=== PATIENT | male | born 1960 | race Caucasian/White ===

== ENCOUNTER 2016-07-04 09:02 | Observation (INO) | payer OTHER ==
[2016-06-30 15:37] LABS: HEMATOCRIT 40.1 % (40.0-51.0); HEMOGLOBIN 13.9 g/dL (13.6-17.8)
[2016-06-30 16:21] LABS: BUN (BLOOD UREA NITROGEN) 9 MG/DL (6-23); CALCIUM, SERUM 8.9 MG/DL (8.5-10.4); CHLORIDE, SERUM 106 MMOL/L (96-112); CO2 (CARBON DIOXIDE) 26 MMOL/L (24-34); GFR AFRICAN AMERICAN 115 ML/MIN (>=60); GFR NON AFRICAN AMERICAN 99 ML/MIN (>=60); GLUCOSE, SERUM 81 MG/DL (60-99); SODIUM, SERUM 140 MMOL/L (135-148)
--- NOTE | ~2016-07-04 | OP ---
Record Of Operation [facility] [address] [place]. 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 OPERATIVE PROCEDURES PERFORMED: 1. Left supraomohyoid neck dissection. 2. Left partial glossectomy. 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 Left tongue lesion was biopsied and revealed invasive squamous cell carcinoma. He was felt to benefit from surgical excision of this lesion. Given its depth of invasion of greater than 2.5 mm, he was felt to benefit from neck dissection as well as that would double with both diagnostic and therapeutic in modality. OPERATIVE PROCEDURE AND FINDINGS: After informed consent was obtained, the patient was brought to the operating room, and placed on the operating table in the supine position, at which point general endotracheal anesthesia was induced by the Anesthesia Service through a nasotracheal route. The left neck was prepped and draped in standard sterile fashion and a skin incision was made from the base of the mastoid along the left side, along the left anterior border of the sternocleidomastoid muscle and into the lower third of the neck. Subplatysmal flap was then elevated from posteriorly to anteriorly, and then the fiber lymphatic packet was grasped anterior and lateral to the sternocleidomastoid muscle. This fiber lymphatic packet was then dissected anterior to the muscle and to the floor of the neck under the muscle. The spinal accessory nerve was identified and preserved through the course of dissection. The level 2B was dissected from the posterior aspect of the specimen and then was passed under the spinal accessory nerve and up to the posterior border of the internal jugular vein. Cervical rootlets were treated in a similar fashion and preserve. The fiber lymphatic packet was then dissected up and over the carotid artery and internal jugular vein structure and then into mid anterior portion of the neck. His left submandibular gland was left in place. Specimen was removed from the left neck and was sent as left neck contents. This was from the omohyoid muscle superiorly and just deep to the sternocleidomastoid muscle anteriorly. Attention was then turned towards closure of the wound. Wound was closed in multiple layers consisting of deep Vicryl suture followed by closure of the skin with plain gut suture. Ointment was liberally applied following application of a 10 flat MAGDI drain brought out through a separate stab incision in the posterior neck. Attention was then turned toward the oral cavity where penetrating towel clip was used to deutsch the midline of the tongue and draw the tongue anteriorly into the operative field. An ulcerative thick lesion was noted in the left lateral tongue, the surgical margins which were approximately 1 cm in situ margins were then marked with a Dixie tip dissector and harmonic Scalpel was then used to dissect the left lateral aspect Record Of Operation [facility] [id number] [place]. [address] NAME: JENN PATEL : 58 STATUS : DIS Dilcia PAT#: [id number] AGE: 56 ADM/REG DATE : 07/04/16 MR#: [id number] REPORT SERV DATE: 07/10/16 DICTATED BY: MIQUEL CARPENTER. DATE: 07/05/16 REPORT STATUS : Draft TRANSCRIBED BY: MONSERRAT DATE: 07/05/16 of the tongue. The specimen was then oriented with a short stitch anterior and the long stitch with superior medial. At this point, hemostasis had been achieved with Harmonic scalpel and attention was turned toward closure of the wound. The wound was closed with a serial Vicryl sutures in the linear fashion. The patient tolerated this well. He was turned back toward anesthesia, aroused from anesthesia, and taken to the Postanesthesia Care Unit in satisfactory condition. COMPLICATIONS: None. ESTIMATED BLOOD LOSS: Less than 20 mL. IV FLUIDS: Per anesthesia. DLTanya/MONSERRAT Miquel Carpenter M.D. / [id number] CC: Marilee Johnson M.D.
[~2016-07-04 09:02] MED LIST: COREG12 PO; GOODY'S EX-STR1 EAC1 PO; HYT1 PO; NORV10 PO; TRAZ50 PO; ZANAFLEX 4 MG TA4 MG PO; ZYRTEC ALLGY10 MG PO
[2016-07-04 10:04] LABS: BASOPHILS 0.2 %; BASOPHILS ABSOLUTE 0.01 10/3/uL (0.0-0.16); EOSINOPHILS 2.1 %; HEMATOCRIT 40.5 % (40.0-51.0); HEMOGLOBIN 14.3 g/dL (13.6-17.8); IMMATURE GRANULOCYTES 0.2 %; IMMATURE GRANULOCYTES ABSOLUTE 0.01 10/3/uL (0.0-0.11); LYMPHOCYTES 24.4 %; LYMPHOCYTES ABSOLUTE 1.14 10/3/uL (0.67-4.30); MEAN CORPUS HGB CONC 35.3 g/dL (32.0-36.0); MEAN CORPUSCULAR HEMOGLOB 34.5 pg (26.0-34.0); MEAN CORPUSCULAR VOLUME 97.6 fL (80-100); MEAN PLATELET VOLUME 10.4 fL (9.2-13.0); MONOCYTES 11.3 %; MONOCYTES ABSOLUTE 0.53 10/3/uL (0.21-1.20); NEUTROPHILS 61.8 %; NEUTROPHILS ABSOLUTE 2.88 10/3/uL (2.02-8.40); PLATELET COUNT 207 10/3/uL (150-400); RBC DISTRIBUTION WIDTH 12.9 % (12.0-16.0); RED CELL COUNT 4.15 10/6/uL (4.7-6.1); WHITE BLOOD CELLS 4.7 10/3/uL (4.5-10.5)
[2016-07-04 10:08] LABS: MANUAL DIFF NO %
[2016-07-05] MEDS ORDERED: PERIDEX PO (10:11)
[2016-07-05] MEDS ORDERED: ZOFRAN ODT4 MG PO (10:11)
[2016-07-05] MEDS ORDERED: PERCOCET 10/3251 TAB PO (10:12)
== END 2016-07-05 10:57 | disposition home or self-care (01) ==
LOC: SDC/OF 09:02 → 5SO 15:37
PROVIDERS: Otolaryngology
PROC: 0CB70ZZ Excision of Tongue, Open Approach (ICD-10-PCS; principal; 2016-07-04 11:00)
PROC: 07B20ZX Excision of Left Neck Lymphatic, Open Approach, Diagnostic (ICD-10-PCS; 2016-07-04 11:00)
DX: C02.9 Malignant neoplasm of tongue, unspecified (principal); I10 Essential (primary) hypertension; J45.909 Unspecified asthma, uncomplicated; K21.9 Gastro-esophageal reflux disease without esophagitis; F17.210 Nicotine dependence, cigarettes, uncomplicated; M54.5 Low back pain; Z88.5 Allergy status to narcotic agent; Z91.040 Latex allergy status; Z98.890 Other specified postprocedural states; Z90.89 Acquired absence of other organs
CPT/HCPCS: 80048; 85014; 85018; 85025; 85610; 85730; 88307; 88309; 93005; 96374; 96375; 96376; A9270-GY; G0378; J0690; J1170; J2250; J2270; J2370; J2405; J2710; J3010